=== PATIENT | female | born 1965 | race Caucasian/White ===

== ENCOUNTER 2017-04-25 01:11 | Emergency (ER) | payer SELFPAY ==
[~2017-04-25] VITALS: Ht 160 cm; Wt 104.5 kg
[2017-04-25 01:18] VITALS: BP 147/85
[2017-04-25] MEDS ORDERED: METF500T4 PO (01:24)
== END 2017-04-25 04:00 | disposition left against medical advice (07) ==
LOC: EMS 01:13
DX: R21 Rash and other nonspecific skin eruption (principal); E11.9 Type 2 diabetes mellitus without complications; Z53.21 Procedure and treatment not carried out due to patient leaving prior to being seen by health care provider